=== PATIENT | male | born 1945 | race Caucasian/White ===

== ENCOUNTER → 2017-08-19 07:58 | Outpatient (CLI) | payer MEDICARE, SELFPAY ==
[2017-08-19 13:08] LABS: ALB/GLOB Ratio 0.8 RATIO (0.9-2.4); AST(SGOT) 27 U/L (15-37); Alanine Aminotransfer ALT/SGPT 34 U/L (16-61); Albumin, Serum 3.6 g/dL (3.2-5.0); Alkaline Phosphatase 86 U/L (45-117); Anion Gap 8 (5-15); BUN 25 mg/dL (7-18); BUN/Creat Ratio 26.8 RATIO (10-20); Calcium,Total 8.5 mg/dL (8.5-10.1); Chloride 105 mmol/L (98-107); Cholesterol 188 mg/dL (200); Creatinine, Serum 0.93 mg/dL (0.70-1.30); EST Glomerular Filtration Rate 85 mL/min (>60); Est Glom Filt Rate - Afr Amer 103 mL/min (>60); Globulin 4.4 g/dL (2.2-4.2); Glucose 88 mg/dL (74-106); High Density Lipoprotein 60 mg/dL; Potassium 4.3 mmol/L (3.5-5.1); Sodium Level 139 mmol/L (136-145); Triglycerides 100 mg/dL; Very Low Density Lipoprotein 20 mg/dL (5-40)
[2017-08-19 13:13] LABS: Hemoglobin A1c 5.6 % (4.2-6.3)
[2017-08-19 13:14] LABS: Vitamin D,25 Hydroxy 18.9 ng/mL (29.95-100.01)
[2017-08-19 13:22] LABS: PTHIN 115.2 pg/mL (18.4-80.1)
== END ==
PROVIDERS: Family Provider Family Medicine; PCP Family Medicine; Visit Provider Family Medicine
DX: E78.5 Hyperlipidemia, unspecified (principal); E55.9 Vitamin D deficiency, unspecified; K76.0 Fatty (change of) liver, not elsewhere classified; N25.81 Secondary hyperparathyroidism of renal origin; R73.01 Impaired fasting glucose
CPT/HCPCS: 36415; 80053; 80061; 82306; 83036; 83970

== ENCOUNTER 2018-02-18 19:27 | Emergency (ER) | payer MEDICARE, SELFPAY ==
[2018-02-18 19:28] VITALS: BP 170/105; PULSE 95; RESP 17; TEMP 37.7; O2SAT 99; BMI 36.1
--- NOTE | 2018-02-18 19:52 | ED.DCSUM_ITS ---
- ER Visit Summary Date of Service: 02/18/18 Chief Complaint: Headache History of Present Illness: The patient is a 72 M who presents with a few day history of polyuria, gradual onset of headache, he did have an upper respiratory infection a week ago. He wants to make sure his blood sugar is okay , he is not a diabetic currently and does not take any medications. He has no fever or chills. No chest pain shortness of breath he has noticed some weight gain in the past few months but no swelling of his legs or arms. He does not feel weak. He has no weakness or paresthesias. Physical Examination: Not appear in acute distress. Moist mucous membranes, no obvious facial deformity No C-spine tenderness supple neck. Regular rate and rhythm without any obvious murmurs Clear lungs bilaterally speaking in full sentences without any obvious respiratory distress Abdomen soft and nontender no guarding or rebound Moves all extremities without any difficulty or pain. Skin does not show any obvious rashes or lesions, no trauma. Alert oriented ?3 with no gross focal deficit Emergency Department Course and Treatment: She has an unremarkable workup, CT head blood work and urinalysis are unremarkable. There is no evidence of diabetes right now, I did explain to him he is to follow-up with his PCP for hemoglobin A1c and further diabetic testing. He is discharged in stable condition after receiving IV fluids he significantly improved. Did have a gradual onset of headache which also improved with IV fluids. He has a normal neurological exam and normal CT no further testing is needed. Discharge stable condition Impression: Dehydration Headache This note was generated with E[employer] dictation software. It may contain incorrect words, spelling, and punctuation that were not noted in review of the chart prior to signing ED Disposition - Plan for ED Patient: Disposition: Home or Assisted Living Chief Complaint: General Illness Instructions: ED Cephalgia Unspecified, Dehydration Referrals: Juan Araujo DO [Primary Care Provider] - 3-5 Days
[2018-02-18] MEDS: Acetaminophen 500 MG Tablet 1000 MG PO (20:00)
[2018-02-18 20:38] LABS: Absolute Lymphocyte Count 0.93 X10^3/ul (0.83-4.51); Absolute Neutrophil Count 7.2 X10^3/uL (2.0-7.7); Basophil# 0.05 X10^3/uL; Basophil% 0.6 % (0-1); Eosinophil# 0.19 X10^3/uL; Eosinophils% 2.1 % (0-5); Hematocrit 43.7 % (40-54); Hemoglobin 15.1 g/dl (13.0-16.5); Lymphocyte # 0.93 X10^3/ul (4.0); Lymphocyte % 10.4 % (19-41); Mean Corp Hgb Conc 34.6 g/gl (32-36); Mean Corpuscular Hgb 30.3 pg (27.0-32.0); Mean Corpuscular Volume 87.8 fL (80-94); Mean Platelet Vol. 10.5 fl (6.2-12.0); Monocyte# 0.52 X10^3/uL; Monocyte% 5.8 % (0-10); Neutrophil % 80.7 % (47-70); Platelet Count 146 K/mm3 (150-450); RBC Distribution Width CV 13.1 % (11.6-14.6); RBC Distribution Width SD 42.1 fl (35.1-43.9); Red Blood Count 4.98 M/mm3 (4.6-6.2); White Blood Count 8.9 K/mm3 (4.4-11.0)
[2018-02-18 20:40] LABS: Color, Urine Yellow (Yellow); Glucose, Dipstick Normal (Normal); Ketone-Dipstick Negative (Negative); Leukocyte Esterase-Dipstick Negative /ul (Negative); Nitrite-Dipstick Negative (Negative); Occult Blood-Urine 25 /ul (Negative); POSITIVE COUNT NO; POSITIVE DIFFERENTIAL NO; POSITIVE MORPHOLOGY NO; Protein-Dipstick 30 mg/dl (Negative); Specific Gravity, Urine 1.025 (1.002-1.030); Urine Bilirubin Dipstick Negative (Negative); Urine Clarity Clear (Clear); Urine Urobilinogen Normal (Normal)
[2018-02-18 21:11] LABS: Bacteria 1+ /hpf (None Seen); Mucous, Urine 3+ /hpf (<or=2+); Red Blood Cells-Urine 0-5 SEEN /hpf (0-5); Squamous Epithelial Cells - UA 0-5 SEEN /hpf (0-5); White Blood Cells 0-5 SEEN /hpf (0-5)
[2018-02-18 21:27] LABS: ALB/GLOB Ratio 0.7 RATIO (0.9-2.4); AST(SGOT) 22 U/L (15-37); Alanine Aminotransfer ALT/SGPT 26 U/L (16-61); Albumin, Serum 3.3 g/dL (3.2-5.0); Alkaline Phosphatase 85 U/L (45-117); Anion Gap 9 (5-15); BUN 18 mg/dL (7-18); BUN/Creat Ratio 17.1 RATIO (10-20); Calcium,Total 8.1 mg/dL (8.5-10.1); Chloride 106 mmol/L (98-107); Creatinine, Serum 1.05 mg/dL (0.70-1.30); EST Glomerular Filtration Rate 74 mL/min (>60); Est Glom Filt Rate - Afr Amer 90 mL/min (>60); Estimated Creatinine Clearance 65.46 ml/min; Globulin 4.6 g/dL (2.2-4.2); Glucose 114 mg/dL (74-106); Protein, Total 7.9 g/dL (6.4-8.2); Sodium Level 138 mmol/L (136-145)
[2018-02-18 21:45] VITALS: BP 167/80; PULSE 79; RESP 18; O2SAT 98
== END 2018-02-18 21:46 | disposition home or self-care (01) ==
PROVIDERS: Emergency Provider Emergency Medicine; Family Provider Family Medicine; PCP Family Medicine
DX: E86.0 Dehydration (principal); R51 Headache; I10 Essential (primary) hypertension
CPT/HCPCS: 70450; 71045; 80053; 81001; 85025; 96360; 96361; 99285; J7030; J7040; A4216

== ENCOUNTER → 2025-02-13 | Outpatient (CLI) | payer MEDICARE, SELFPAY ==
[2025-02-13 09:47] LABS: AST(SGOT) 36 U/L (<=37); Alanine Aminotransfer ALT/SGPT 26 U/L (<=46); Albumin, Serum 4.2 g/dL (3.4-4.8); Alkaline Phosphatase 85 U/L (40-129); Anion Gap 11 (5-15); BUN 19 mg/dL (4-19); BUN/Creat Ratio 17.3 RATIO (10-20); Calcium,Total 9.3 mg/dL (7.6-11.0); Carbon Dioxide 24.4 mmol/L (21.0-32.0); Chloride 105 mmol/L (98-108); Cholesterol 177 mg/dL (<=200); Globulin 4.1 g/dL (2.2-4.2); Glucose 104 mg/dL (70-99); Low Density Lipoprotein Calc. 93 mg/dL; Potassium 4.6 mmol/L (3.3-5.1); Triglycerides 124 mg/dL; Very Low Density Lipoprotein 25 mg/dL (5-40); cholesterol:hdl ratio screen 3.01
[2025-02-13 10:14] LABS: Creatinine, Urine (random) 176.00 mg/dL (39.00-259.00); Microalbumin,Random Urine 16.6 mg/L (<20 mg/L)
== END | disposition home or self-care (01) ==
PROVIDERS: PCP Nurse Practitioner Family; Referring Provider Nurse Practitioner Family; Visit Provider Nurse Practitioner Family
DX: E78.5 Hyperlipidemia, unspecified (principal); R73.03 Prediabetes
CPT/HCPCS: 36415; 80053; 80061; 82043; 82570

== ENCOUNTER 2025-03-14 07:36 | Day surgery (SDC) | payer MEDICARE, SELFPAY ==
[2025-03-14] VITALS (7 sets, daily range): BP systolic 95–153; BP diastolic 65–73; PULSE 70–86; RESP 16–18; TEMP 36.1–36.7; O2SAT 93–97; BMI 34.4
[2025-03-14] MEDS: Lactated Ringers 1,000 ML 15 ML IV (08:09)
--- NOTE | 2025-03-14 08:11 | HP.PCM_ITS ---
HPI - General General Date of Admission: 03/14/25 Date of Service: 03/14/25 HPI Narrative HECTOR ORELLANA, is a 79 M who presents [HECTOR ORELLANA, is a 79 M who presents to the office today for FU regarding chronic constipation. He reports abdominal bloating and cramping, and that it's been 3 days since his last BM. He states that his last BM was not sizeable to note, did not strain, and did feel as if he had complete evacuation. He has taken on his own per his report: Clear Lax, Dulcolax tabs, and tried to give himself enemas. He states giving self enemas and suppositories is very difficult on his own as his refuses to help him. He denies fever, chills, significant pain, and loss of appetite. He has slowed down on his eating only because he knows that he hasn't had a decent BM for a few days. He denies nausea, vomiting, heartburn, reflux, diarrhea, hematochezia and melena. He states that he eats whatever his cooks, but admits his meals are not high in dietary fiber. He reports that he's taking adequate water in. ] COUNTS INCLUDE 234 BEDS AT THE [facility] Medical History Wears glasses Non-smoker HLD (hyperlipidemia) Diverticulosis of colon Fatty liver Other specified diseases of gallbladder Arthritis Spinal stenosis Benign prostatic hyperplasia with lower urinary tract symptoms HTN (hypertension) Prediabetes Home Medications ?Medication ?Instructions ?Recorded ?Last Taken ?Type polyethylene glycol 3350 17 gram 17 g PO DAILY 4 Unknown History oral powder packet ergocalciferol (vitamin D2) 1,250 1,250 mcg PO QWEEK 0 08/27/22 Unknown History mcg (50,000 unit) capsule (Drisdol) peg 3350-electrolytes 236 240 ml PO Q10M #4,000 mL 10/05 Unknown Rx gram-22.74 gram-6.74 gram-5.86 gram solution (Golytely) amlodipine 5 mg-benazepril 10 mg 1 cap PO DAILY Unknown History capsule Allergy/AdvReac Type Severity Reaction Status Date / Time Iodinated Contrast Media Allergy Unknown Hives Verified 03/14/25 07:54 rubber, unspecified Allergy Unknown Rash Verified 03/14/25 07:54 celecoxib (From Celebrex) Allergy Other Verified 03/14/25 07:54 latex Allergy Swelling Verified 03/14/25 07:55 Family History Mother CVA (cerebral vascular accident) CHF (congestive heart failure) Brother Crohn's disease Surgical History History of transurethral resection of prostate History of knee surgery History of back surgery History of ankle surgery Social History Smoking Status: Never smoker alcohol intake: current ROS Constitutional Constitutional: Denies fatigue, fever(s), poor appetite, weight gain or weight loss Gastrointestinal Gastrointestinal: Denies belching, bloating, change in bowel habits, change in stool character, chewing difficulty, coffee ground emesis, constipation, cramping, diarrhea, dyspepsia, dysphagia, early satiety, excessive flatus, fecal incontinence, heartburn, hematemesis, hematochezia, hemorrhoids, loose stools, melena, nausea, odynophagia, rectal bleeding, tenesmus, vomiting or weight changes Vital Signs Vital Signs Vital Signs: 03/14/25 07:55 03/14/25 07:55 Temperature 98.1 F Temperature Source Temporal Pulse Rate 86 Respiratory Rate 18 Respiratory Pattern Normal Blood Pressure 153/73 H Blood Pressure Mean 99 Blood Pressure Source Monitor Blood Pressure Position Semi-Fowlers Blood Pressure Location Left Arm Pulse Ox 97 Oxygen Delivery Method Room Air Weight Weight: 240 lb 4.862 oz Body Mass Index (BMI) 34.4 Physical Exam Const alert, oriented x3, no apparent distress and healthy appearing General Appearance: cooperative GI normal to inspection, nondistended, normoactive bowel sounds, soft to palpation, non-tender and non-distended Percussion: normal to percussion Rectal Exam: deferred Assessment & Plan Assessment/Plan (1) Chronic constipation: (2) Hemorrhoids: QUALIFIERS: Hemorrhoid type: second degree Qualified Code(s): K64.1 - Second degree hemorrhoids (3) Rectal bleeding: PLAN: Assessment and Plan Assessment and Plan (1) Chronic constipation: Status: Chronic Plan HECTOR ORELLANA, is a 79 M who presents to the office today for FU regarding chronic constipation. Discussed care plan with him. He prefers to try olive oil over castor oil. * continue Dulcolax tabs, 2 tabs PO QHS * continue Miralax, take QHS * olive oil 1tsp PO BID on empty stomach * increase dietary fiber and water intake as able * please notify office of results by Tuesday, 4..25 Coding Level of Care Code
--- NOTE | 2025-03-14 08:14 | PRE.ANES_ITS ---
ASA Classification* ASA Classification ASA Classification: 2 Assessment & Plan Anesthesia* Anesthesia Assessment Anesthesia Assessment: Discussed sedation and/or anesthesia options, risks, benefits, and alternatives with patient/parents/legal guardian/POA. Questions invited. The patient/parents/legal guardian/POA seems to understand and agrees to proceed with anesthesia plan. Reviewed the physical assessment, medical history, allergy history and patient home medications list prior to surgery/procedure/anesthetic and documented any changes. Performed airway and anesthesia risk assessments. Anesthesia Type Anesthesia Type: MAC History Source History Obtained from:: Patient and Chart Anesthesia Focused Assessment* Temperature: 98.1 F Pulse Rate: 86 Blood Pressure: 153/73 Respiratory Rate: 18 Pulse Ox: 97 Oxygen Delivery Method: Room Air Airway Assessment Mouth opens: >3 cm Mallampati Score: III Teeth Condition: Caps/Crowns and Chipped/Broken Neck Range of motion (ROM): Limited ROM Comment: Left front tooth chipped; Crowns tight on back teeth; Limited extension Labs Anesthesia Preop lab: CBC WBC, (4.4-11.0) 8.9 K/mm3 02/18/18, 20:15 RBC, (4.6-6.2) 4.98 M/mm3 02/18/18, 20:15 Hgb, (13.0-16.5) 15.1 g/dl 02/18/18, 20:15 Hct, (40-54) 43.7 % 02/18/18, 20:15 Plt Count, (150-450) 146 K/mm3 L 02/18/18, 20:15 CHEMISTRY Potassium, (3.3-5.1) 4.6 mmol/L 02/13/25, 07:48 Sodium, (133-145) 140 mmol/L 02/13/25, 07:48 Phosphorus, (2.5-4.9) 2.6 mg/dL 12/17/14, 06:21 BUN, (4-19) 19 mg/dL 02/13/25, 07:48 Creatinine, (0.70-1.20) 1.10 mg/dL 02/13/25, 07:48 Glucose, (70-99) 104 mg/dL H 02/13/25, 07:48 TSH, (0.358-3.74) 2.08 uIU/mL 08/29/12, 13:25 COAG PT, (11.9-14.4) 12.5 SECONDS 10/31/13, 06:04 Pre-Assessment Diagnosis/Proposed Procedure Planned Operative Procedure(s): Colonoscopy Anesthesia History 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 When Was Last Pacemaker Check QUESTION #4 FULL TEXT: You/Your Family Experience fever (hyperthermia) with Anesthesia Last Oral Intake Last Oral intake: Last Oral Intake NPO since 07:00 03/14/25 07:55 Meds taken in AM with sips of No 03/14/25 07:55 water? Meds patient instructed to take am of surgery PONV PONV - casket assembler metal: PONV - casket assembler metal Female No 03/07/25 14:59 HX of Motion Sickness No 03/07/25 14:59 HX of N/V After Surgery No 03/07/25 14:59 Non-Smoker Yes 03/07/25 14:59 Duration of Surgery greater No 03/07/25 14:59 than 60 minutes Number of Risk Factors 1 03/07/25 14:59 PONV Score Low Risk 03/07/25 14:59 Height & Weight Height & Weight: Anesthesia: Height & Weight Height 5 ft 10 in 03/14/25 07:55 Weight: 109 kg 03/14/25 07:55 Body Mass Index (BMI) 34.4 03/14/25 07:55 Respiratory Assessment Respiratory Assessment - casket assembler metal: Respiratory Tract Infection Hx - casket assembler metal Hx Respiratory Tract Infection No 03/07/25 14:59 STOP Sleep Apnea STOP Sleep Apnea - casket assembler metal: STOP Sleep Apnea - casket assembler metal Hx Hypertension Yes 03/07/25 14:59 Hx Sleep Apnea No 03/07/25 14:59 CPAP No 04/28/23 09:20 BIPAP No 04/28/23 09:20 Do you snore loudly (louder No 03/07/25 14:59 than talking or can be heard Do you often feel tired/ No 03/07/25 14:59 fatigued/ sleepy during daytime? Has anyone observed you stop No 03/07/25 14:59 breathing during sleep? STOP Results Negative 03/07/25 14:59 QUESTION #5 FULL TEXT : Do you snore loudly (louder than talking or can be heard through closed doors)? 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 Specify any problems Hx of Preganancy in last 3 N/A 03/07/25 14:59 Months Nurse Filling Out Transfusion [email or web address] 03/07/25 14:59 & Questions: Date: 03/07/25 03/07/25 14:59 Time: 15:00 03/07/25 14:59 Patient unable to answer at this time (ie. confused, unrespo /Reproduction History /Reproductive History - casket assembler metal: /Reproductive Hx- casket assembler metal Hx Now No 03/07/25 14:59 Gestational Age (in weeks): EDC: Hx Hx Para Hx Section SAB No 03/07/25 14:59 Active Medications Active Medications: Current Medications Generic Name Dose Route Start Last Admin Trade Name Freq PRN Reason Stop Dose Admin Lactated Ringer's 1,000 mls @ 15 mls/hr 03/14/25 08:00 03/14/25 08:09 IV 15 mls/hr .Q48H KAROL Administration PFSH Medical History Wears glasses Non-smoker HLD (hyperlipidemia) Diverticulosis of colon Fatty liver Other specified diseases of gallbladder Arthritis Spinal stenosis Benign prostatic hyperplasia with lower urinary tract symptoms HTN (hypertension) Prediabetes Home Medications ?Medication ?Instructions ?Recorded ?Last Taken ?Type polyethylene glycol 3350 17 gram 17 g PO DAILY 4 Unknown History oral powder packet ergocalciferol (vitamin D2) 1,250 1,250 mcg PO QWEEK 0 08/27/22 Unknown History mcg (50,000 unit) capsule (Drisdol) peg 3350-electrolytes 236 240 ml PO Q10M #4,000 mL 10/05 Unknown Rx gram-22.74 gram-6.74 gram-5.86 gram solution (Golytely) amlodipine 5 mg-benazepril 10 mg 1 cap PO DAILY Unknown History capsule Allergy/AdvReac Type Severity Reaction Status Date / Time Iodinated Contrast Media Allergy Unknown Hives Verified 03/14/25 07:54 rubber, unspecified Allergy Unknown Rash Verified 03/14/25 07:54 celecoxib (From Celebrex) Allergy Other Verified 03/14/25 07:54 latex Allergy Swelling Verified 03/14/25 07:55 Family History Mother CVA (cerebral vascular accident) CHF (congestive heart failure) Brother Crohn's disease Surgical History History of transurethral resection of prostate History of knee surgery History of back surgery History of ankle surgery Social History Smoking Status: Never smoker alcohol intake: current Review of Systems (Anesthesia) ROS Narrative System reviewed and no additional complaints, except as documented.
--- NOTE | 2025-03-14 09:19 | PCM.POST.ANE ---
Anesthesia: Postop Eval I Current Vital Signs Temperature: 97 F Pulse Rate: 72 Blood Pressure: 102/65 Respiratory Rate: 16 Pulse Ox: 97 Oxygen Delivery Method: Room Air Assessment Airway patent: Yes Spontaneous unlabored respirations: Yes Mental status: Awake and Calm nausea: No Vomiting: No Anesthesia Complication: No Fluid Hydration Crystalloid volume administer (ml): 500 Total IV fluid infused: 500 Progress Note Anesthesia document: Postop Eval 1 completed: Yes
--- NOTE | 2025-03-14 09:28 | OP.COLON_ITS ---
Patient Name: Jasson Mcnair Procedure Date: 03/14/2025 8:32 AM Date of : 1945 Age: 79 Procedure: Colonoscopy Indications: Lower abdominal pain Providers: Terry Benítez DO Referring MD: Panfilo Abarca Medicines: Monitored Anesthesia Care Patient Profile: This is a 79 year old male. Refer to note in patient chart for documentation of history and physical. Last Colonoscopy: date unknown. Unable to locate last colonoscopy report. Complications: No immediate complications. Procedure: Pre-Anesthesia Assessment: - Prior to the procedure, a History and Physical was performed, and patient medications and allergies were reviewed. The patient is competent. The risks and benefits of the procedure and the sedation options and risks were discussed with the patient. All questions were answered and informed consent was obtained. Patient identification and proposed procedure were verified by the physician in the pre-procedure area. Mental Status Examination: alert and oriented. Airway Examination: normal oropharyngeal airway and neck mobility. Respiratory Examination: clear to auscultation. CV Examination: normal. Prophylactic Antibiotics: The patient does not require prophylactic antibiotics. Prior Anticoagulants: The patient has taken no anticoagulant or antiplatelet agents. ASA Grade Assessment: II - A patient with mild systemic disease. After reviewing the risks and benefits, the patient was deemed in satisfactory condition to undergo the procedure. The anesthesia plan was to use monitored anesthesia care (MAC). Immediately prior to administration of medications, the patient was re-assessed for adequacy to receive sedatives. The heart rate, respiratory rate, oxygen saturations, blood pressure, adequacy of pulmonary ventilation, and response to care were monitored throughout the procedure. The physical status of the patient was re-assessed after the procedure. After I obtained informed consent, the scope was passed under direct vision. Throughout the procedure, the patient's blood pressure, pulse, and oxygen saturations were monitored continuously. The colonoscope was introduced through the anus and advanced to the cecum, identified by appendiceal orifice and ileocecal valve. The colonoscopy was performed without difficulty. The patient tolerated the procedure well. Scope In: 8:40:20 AM Scope Withdrawal Time 0 hours 11 minutes 9 seconds Scope Out: 8:57:22 AM Total Procedure Duration Time 0 hours 17 minutes 2 seconds Findings: The perianal and digital rectal examinations were normal. Multiple small and large-mouthed diverticula were found in the entire colon. Non-bleeding internal hemorrhoids were found during retroflexion. The hemorrhoids were Grade II (internal hemorrhoids that prolapse but reduce spontaneously). The exam was otherwise without abnormality on direct and retroflexion views. Impression: - Diverticulosis in the entire examined colon. - Non-bleeding internal hemorrhoids. - The examination was otherwise normal on direct and retroflexion views. - No specimens collected. Recommendation: - Discharge patient to home. - Resume previous diet. - Continue present medications. - Repeat colonoscopy in 5 years for surveillance. Procedure Code(s): --- Professional --- 85789, Colonoscopy, flexible; diagnostic, including collection of specimen(s) by brushing or washing, when performed (separate procedure) CPT copyright 2021 [employer]. All rights reserved. The codes documented in this report are preliminary and upon prosthetics assistant review may be revised to meet current compliance requirements. Terry Benítez DO 03/14/2025 9:27:33 AM This report has been signed electronically. Number of Addenda: 0 Note Initiated On: 03/14/2025 8:32 AM
--- NOTE | 2025-03-14 09:28 | OP.PROVAT_ITS ---
03/14/2025 Panfilo Abarca Re : Colonoscopy procedure for Jasson Mcnair Dear Osman This procedure was performed on March. My impressions and recommendations are as follows: Impressions : - Diverticulosis in the entire examined colon. - Non-bleeding internal hemorrhoids. - The examination was otherwise normal on direct and retroflexion views. - No specimens collected. Recommendations : - Discharge patient to home. - Resume previous diet. - Continue present medications. - Repeat colonoscopy in 5 years for surveillance. My findings are described in the full procedure note, which is enclosed. If I can be of further assistance, please feel free to contact me at . Sincerely, Terry Benítez, 03/14/2025 9:27:33 AM This report has been signed electronically.
--- NOTE | 2025-03-14 12:09 | PCM.POSTANE2 ---
Anesthesia Postop Eval I Sum Postop Eval Completion status Anesthesia document: Postop Eval 1 completed: Yes Anesthesia Postop Eval I Summary Anesthesia Postop Eval I Summary: Anesthesia Postop Eval I: Assessment Summary Airway patent Yes 03/14/25 09:20 [email or web address] Spontaneous unlabored Yes 03/14/25 09:20 [email or web address] respirations Mental status Awake,Calm 03/14/25 09:20 [email or web address] nausea No 03/14/25 09:20 [email or web address] Vomiting No 03/14/25 09:20 [email or web address] Anesthesia Postop Eval I: Fluid Summary Crystalloid volume administer 500 03/14/25 09:20 [email or web address] (ml) Colloids volume administered ( ml) Blood Product volume administered (ml) Total IV fluid infused 500 03/14/25 09:20 [email or web address] Anesthesia Postop Eval I: Summary Notes Anesthesia Complication No 03/14/25 09:20 [email or web address] Anesthesia Complication Comment: Post-operative progress note Anesthesia: Postop Eval II Evaluation Mental status: Awake and Calm Pain Level: 0 nausea: No Vomiting: No Complications Anesthesia Complication: No
== END 2025-03-14 09:41 | disposition home or self-care (01) ==
LOC: EN 07:36 → AC 07:37
PROVIDERS: PCP Nurse Practitioner Family; Referring Provider Nurse Practitioner Family; Visit Provider Internal Medicine Gastroenterology
PROC: 0DJD8ZZ Inspection of Lower Intestinal Tract, Via Natural or Artificial Opening Endoscopic (ICD-10-PCS; CPT 45378; principal; 2025-03-14 09:40)
DX: K62.5 Hemorrhage of anus and rectum (principal); E78.5 Hyperlipidemia, unspecified; I10 Essential (primary) hypertension; Z79.899 Other long term (current) drug therapy; K57.30 Diverticulosis of large intestine without perforation or abscess without bleeding; K64.1 Second degree hemorrhoids; K59.09 Other constipation
CPT/HCPCS: 43235; J2405